=== PATIENT | female | born 1990 | race Caucasian/White ===

== ENCOUNTER 2018-08-31 08:00 | Outpatient (CLI) | payer MEDICAID, OTHER ==
[2018-09-01 08:57] LABS: HEPATITIS C ANTIBODY NON-REACTIVE (NON-REACTIVE)
[2018-09-01 13:17] LABS: HIV AG/AB 4TH GEN NON-REACTIVE (NON-REACTIVE)
[2018-09-02 08:46] LABS: HSV 1 IGG TYPE SPECIFIC AB <0.90 index; HSV 2 IGG TYPE SPECIFIC AB 8.35 index
== END 2018-08-31 23:59 | disposition home or self-care (01) ==
LOC: LAB.N 08:00
PROVIDERS: ATTEND Nurse Practitioner Obstetrics & Gynecology
DX: Z11.3 Encounter for screening for infections with a predominantly sexual mode of transmission (principal)
CPT/HCPCS: 36415; 81599; 86592; 86695; 86696; 86803; 87389

== ENCOUNTER 2018-08-31 08:00 | Outpatient (CLI) | payer MEDICAID, OTHER ==
[2018-08-31 14:46] LABS: BILIRUBIN,URINE NEGATIVE (NEGATIVE); GLUCOSE, URINE (UA) NEGATIVE (NEGATIVE); KETONES,URINE (UA) NEGATIVE (NEGATIVE); LEUKOCYTE ESTERASE, URINE NEGATIVE (NEGATIVE); NITRITE,URINE NEGATIVE (NEGATIVE); OCCULT BLOOD,URINE NEGATIVE (NEGATIVE); PROTEIN,URINE 30 mg/dL (NEGATIVE); UROBILINOGEN,URINE 0.2 (NORMAL) E.U./dL (NORMAL)
[2018-08-31 14:48] LABS: CLARITY,URINE CLEAR (CLEAR)
[2018-08-31 15:26] LABS: BACTERIA,URINE None Seen /HPF (None Seen); RBC,URINE None Seen /HPF (0-5); SQUAMOUS EPITHELIAL CELL,UR MOD Squamous (<= Few)
[2018-08-31 15:27] LABS: MUCUS,URINE Moderate Strands
[2018-08-31 22:06] LABS: CANDIDA GROUP DNA POSITIVE (NEGATIVE); CANDIDA KRUSEI DNA NEGATIVE (NEGATIVE); TRICHOMONAS VAGINALIS DNA NEGATIVE (NEGATIVE)
== END 2018-08-31 23:59 | disposition home or self-care (01) ==
LOC: LAB.R 08:00
PROVIDERS: ATTEND Nurse Practitioner Obstetrics & Gynecology
DX: R10.32 Left lower quadrant pain (principal)
CPT/HCPCS: 81001; 81003; 87086; 87661; 87801

== ENCOUNTER 2019-12-01 16:28 | Outpatient (CLI) | payer OTHER ==
[2019-12-02 09:06] LABS: HIV AG/AB 4TH GEN NON-REACTIVE (NON-REACTIVE)
[2019-12-02 12:21] LABS: HEPATITIS C ANTIBODY NON-REACTIVE (NON-REACTIVE)
[2019-12-06 08:41] LABS: HSV 1 IGG TYPE SPECIFIC AB <0.90 index
== END 2019-12-01 23:59 | disposition home or self-care (01) ==
LOC: LAB.WCP 16:28
PROVIDERS: ATTEND Nurse Practitioner Obstetrics & Gynecology
DX: N64.52 Nipple discharge (principal); Z11.3 Encounter for screening for infections with a predominantly sexual mode of transmission
CPT/HCPCS: 36415; 81599; 84146; 86592; 86695; 86696; 86803; 87389

== ENCOUNTER 2019-12-08 07:00 | Outpatient (CLI) | payer OTHER | END 2019-12-08 23:59 | disposition home or self-care (01) | LOC: LAB.R 07:00 | PROVIDERS: ATTEND Nurse Practitioner Obstetrics & Gynecology | DX: Z11.3 Encounter for screening for infections with a predominantly sexual mode of transmission (principal) | CPT/HCPCS: 81599; 87491; 87591 ==

== ENCOUNTER 2019-12-15 08:00 | Outpatient (CLI) | payer OTHER | END 2019-12-15 23:59 | disposition home or self-care (01) | LOC: LAB.WCP 08:00 | PROVIDERS: ATTEND Nurse Practitioner Obstetrics & Gynecology | DX: Z32.01 Encounter for pregnancy test, result positive (principal) | CPT/HCPCS: 36415; 84702 ==

== ENCOUNTER 2019-12-18 14:35 | Outpatient (CLI) | payer OTHER | END 2019-12-18 23:59 | disposition home or self-care (01) | LOC: LAB.WCP 14:35 | PROVIDERS: ATTEND Nurse Practitioner Obstetrics & Gynecology | DX: Z32.01 Encounter for pregnancy test, result positive (principal) | CPT/HCPCS: 36415; 84702 ==

== ENCOUNTER 2019-12-21 08:39 | Outpatient (CLI) | payer OTHER ==
--- NOTE | 2019-12-21 14:23 | Ultrasound Report ---
PROCEDURE: OB First Trimester INDICATIONS: POSITIVE TEST OUTSIDE/PRIOR DATING DATA: Last menstrual period (LMP): 11/14/2019. LMP-based estimated date of delivery (JERRY): 08/20/2020. First dating scan (date and location): 12/21/2019. Estimated date of delivery (JERRY) from first dating scan: Not applicable. TECHNIQUE: Real-time scanning was performed of the fetus and maternal pelvic organs, with image documentation. COMPARISON: None during this FINDINGS: The uterus is anteverted, anteflexed, and contains a fundal intrauterine gestational sac with a mean sac diameter of 8.9 mm. This corresponds to a 5 week 5 day +/- 12 day gestation. Endovaginal imaging demonstrates that a yolk sac is present. A pole is not detected. Measurement variability in dating: +/- 4 weeks by LMP, +/- 7 days by mean sac diameter (use before 6 weeks gestation if crown-rump length not able to be measured), +/- 5 days by crown-rump length (6-12 weeks gestation). The cervix is closed. There is no subchorionic hemorrhage. There is a tiny subserosal uterine fibroi d off the left posterior fundus. The myometrium is otherwise normal. Ovaries are normal in size. Ther e is a corpus luteum in the right ovary measuring about 1.8 cm. Trace amount of simple fluid is prese nt in the cul-de-sac. Limited images through the kidneys demonstrate no hydronephrosis. IMPRESSION: 1. There is an intrauterine gestational sac containing a yolk sac without appear pole. This is likely due to an early and follow-up ultrasound in 2 weeks to confirm viability is recommended. 2. Closed cervix and no subchorionic hemorrhage. 3. Right ovarian corpus luteum. Reviewed by: Citlali Hutchison MD on 12/21/2019 1:21 PM [facility] Approved by: Citlali Hutchison MD on 12/21/2019 1:21 PM [facility] Station ID: [id number]
== END 2019-12-21 08:40 | disposition home or self-care (01) ==
LOC: DI 08:39
PROVIDERS: ATTEND Nurse Practitioner Obstetrics & Gynecology
DX: O34.81 Maternal care for other abnormalities of pelvic organs, first trimester (principal); N83.11 Corpus luteum cyst of right ovary; O92.79 Other disorders of lactation; O99.89 Other specified diseases and conditions complicating pregnancy, childbirth and the puerperium; N63.14 Unspecified lump in the right breast, lower inner quadrant; Z3A.01 Less than 8 weeks gestation of pregnancy
CPT/HCPCS: 76642; 76801; 76817

== ENCOUNTER 2019-12-21 09:23 | Outpatient (CLI) | payer OTHER ==
--- NOTE | 2019-12-22 12:03 | Ultrasound Report ---
LIMITED ULTRASOUND OF LEFT BREAST: 12/21/2019 CLINICAL: Nipple discharge, left breast, not bloody. No prior exams were available for comparison. Real-time ultrasound of the left breast retroareolar was performed on the area of interest. No discrete cystic or solid mass lesion identified in the retroareolar region. IMPRESSION: NEGATIVE There is no sonographic evidence of malignancy. There is no abnormality seen in the left breast to correspond with the discharge from the nipple in t he sub-areolar depth, however, clinical followup is recommended. This exam was interpreted at Station ID: [id number]. Electronically Signed By: Thompson Castaneda M.D. ddp/:12/21/2019 14:54:10 Ultrasound BI-RADS: 1 Negative BI-RADS CATEGORY: (1) - 1 Unspecified - other recall n/a LATERALITY: (B)
--- NOTE | 2019-12-22 12:03 | Ultrasound Report ---
LIMITED ULTRASOUND OF RIGHT BREAST AND AXILLA: 12/21/2019 CLINICAL: Palpable right breast lump. No prior exams were available for comparison. Color flow and real-time ultrasound of the right breast 3 o'clock, and axilla regions were performed on the areas of interest. There is a 2.2 cm x 1.9 cm x 0.9 cm oval mass with a circumscribed margin in the right breast at 3 o' clock middle depth. This oval mass is hypoechoic with a well-defined boundary. This correlates as p alpated. Color flow imaging demonstrates that there is vascularity present. IMPRESSION: PROBABLY BENIGN The 2.2 cm x 1.9 cm x 0.9 cm oval mass in the right breast likely represents a fibroadenoma and is pr obably benign. A follow-up ultrasound in 3 months is recommended given patient's reported history of change on exam and current . A follow-up ultrasound in 3 months is recommended. This exam was interpreted at Station ID: [id number]. Electronically Signed By: Thompson Castaneda M.D. ddmerlyn/:12/21/2019 14:57:11 Ultrasound BI-RADS: 3 Probably benign BI-RADS CATEGORY: (3) - 3 Ultrasound [id number] 3 month follow-up LATERALITY: (B)
== END 2019-12-21 09:24 | disposition home or self-care (01) ==
LOC: DI 09:23
PROVIDERS: ATTEND Nurse Practitioner Obstetrics & Gynecology
DX: N63.14 Unspecified lump in the right breast, lower inner quadrant (principal); N64.52 Nipple discharge
CPT/HCPCS: 76642

== ENCOUNTER 2020-01-25 12:18 | Outpatient (CLI) | payer OTHER ==
--- NOTE | 2020-01-25 14:48 | Ultrasound Report ---
PROCEDURE: OB First Trimester INDICATIONS: POSITIVE TEST OUTSIDE/PRIOR DATING DATA: Last menstrual period (LMP): 11/14/2019. LMP-based estimated date of delivery (JERRY): 08/20/2020. Estimated date of delivery (JERRY) from first dating scan: 08/16/2020. TECHNIQUE: Real-time scanning was performed of the fetus and maternal pelvic organs, with image documentation. COMPARISON: 12/21/2019 FINDINGS: Embryo: Single living intrauterine gestation with an estimated gestational age of approximately 10 w eeks and 2 days (based off clinical dating). Estimated sonographic gestational age based off crown-ru mp length of 3.9 cm is approximately 10 weeks and 6 days. heart rate is measured at 150 bpm. No perigestational hemorrhage. Measurement variability in dating: +/- 4 weeks by LMP, +/- 7 days by mean sac diameter (use before 6 weeks gestation if crown-rump length not able to be measured), +/- 5 days by crown-rump length (6-12 weeks gestation). Maternal organs: There is a right corpus luteal cyst. Stable posterior uterine fibroid.. Limited alfredo ges through the kidneys demonstrate no hydronephrosis. IMPRESSION: 1. Single living intrauterine gestation with an estimated sonographic gestational age of approximatel y 10 weeks and 6 days versus approximately 10 weeks and 2 days based off clinical dating. Measurement s are concordant. 2. Recommend routine follow-up second trimester anatomic screening survey. 3. Stable posterior uterine fibroid. Reviewed by: Tim Suazo MD on 01/25/2020 2:46 PM PDT Approved by: Tim Suazo MD on 01/25/2020 2:46 PM PDT Station ID: [id number]
== END 2020-01-25 12:19 | disposition home or self-care (01) ==
LOC: DI 12:18
PROVIDERS: ATTEND Nurse Practitioner Obstetrics & Gynecology
DX: Z34.91 Encounter for supervision of normal pregnancy, unspecified, first trimester (principal)
CPT/HCPCS: 76801

== ENCOUNTER 2020-02-02 13:13 | Outpatient (CLI) | payer OTHER ==
[2020-02-02 18:39] LABS: BASOPHILS # (AUTO) 0.1 10^3/uL (0.0-0.1); BASOPHILS % (AUTO) 0.7 %; EOSINOPHILS # (AUTO) 0.4 10^3/uL (0.0-0.7); EOSINOPHILS % (AUTO) 3.6 %; HGB - HEMOGLOBIN 11.3 g/dL (12.0-16.0); LYMPHOCYTES # (AUTO) 2.8 10^3/uL (1.5-3.5); LYMPHOCYTES % (AUTO) 28.6 %; MEAN CORPUSCULAR HEMOGLOBIN 30.4 pg (27.0-31.0); MEAN CORPUSCULAR HGB CONC 33.6 g/dL (32.0-36.0); MEAN CORPUSCULAR VOLUME 90.3 fL (81.0-99.0); MEAN PLATELET VOLUME 10.6 fL (7.9-10.8); MONOCYTES # (AUTO) 0.7 10^3/uL (0.0-1.0); MONOCYTES % (AUTO) 7.4 %; NEUTROPHILS # (AUTO) 5.9 10^3/uL (1.5-6.6); NEUTROPHILS % (AUTO) 59.3 %; PLT - PLATELET COUNT 253 10^3/uL (130-450); RED BLOOD COUNT 3.72 10^6/uL (4.20-5.40); RED CELL DISTRIBUTION WIDTH 13.8 % (12.0-15.0); WHITE BLOOD COUNT 9.9 x10^3/uL (4.8-10.8)
[2020-02-03 08:46] LABS: HIV AG/AB 4TH GEN NON-REACTIVE (NON-REACTIVE)
[2020-02-03 12:38] LABS: HEPATITIS B SURFACE ANTIGEN NON-REACTIVE (NON-REACTIVE)
== END 2020-02-02 23:59 | disposition home or self-care (01) ==
LOC: LAB.WCP 13:13
PROVIDERS: ATTEND Advanced Practice Midwife
DX: Z36.89 Encounter for other specified antenatal screening (principal)
CPT/HCPCS: 36415; 81001; 81003; 81599; 85025; 86592; 86762; 86787; 86850; 86900; 86901; 87086; 87340; 87389

== ENCOUNTER 2020-02-15 08:00 | Outpatient (CLI) | payer OTHER ==
[2020-02-15 19:28] LABS: BILIRUBIN,URINE NEGATIVE (NEGATIVE); GLUCOSE, URINE (UA) NEGATIVE (NEGATIVE); KETONES,URINE (UA) NEGATIVE (NEGATIVE); LEUKOCYTE ESTERASE, URINE NEGATIVE (NEGATIVE); NITRITE,URINE NEGATIVE (NEGATIVE); OCCULT BLOOD,URINE NEGATIVE (NEGATIVE); PROTEIN,URINE NEGATIVE (NEGATIVE); UROBILINOGEN,URINE 0.2 (NORMAL) E.U./dL (NORMAL)
[2020-02-15 19:31] LABS: CLARITY,URINE CLEAR (CLEAR)
[2020-02-15 19:36] LABS: BACTERIA,URINE Rare /HPF (None Seen); RBC,URINE None Seen /HPF (0-5); SQUAMOUS EPITHELIAL CELL,UR MOD Squamous (<= Few)
== END 2020-02-15 23:59 | disposition home or self-care (01) ==
LOC: LAB.R 08:00
PROVIDERS: ATTEND Advanced Practice Midwife
DX: Z36.89 Encounter for other specified antenatal screening (principal)
CPT/HCPCS: 81001; 87086

== ENCOUNTER 2020-04-08 15:11 | Outpatient (CLI) | payer OTHER ==
--- NOTE | 2020-04-09 13:19 | Ultrasound Report ---
LIMITED ULTRASOUND OF RIGHT BREAST: 04/08/2020 CLINICAL: Palpable right breast lump. Comparison is made to exam dated: 12/21/2019 ultrasound - [facility]. Ultrasound of the right breast 3 o'clock region was performed. There is a 2.2 cm x 1.9 cm x 0.9 cm oval mass with a circumscribed margin in the right breast at 3 o' clock middle depth 3 cm from the nipple. This oval mass is hypoechoic with a well-defined boundary. This abnormality is not significantly changed. IMPRESSION: PROBABLY BENIGN The 2.2 cm x 1.9 cm x 0.9 cm oval mass in the right breast likely represents a fibroadenoma and is pr obably benign. A follow-up right ultrasound in 6 months is recommended to demonstrate stability. This exam was interpreted at Station ID: [id number]. Electronically Signed By: Eber damon/celestine:04/08/2020 16:45:29 Ultrasound BI-RADS: 3 Probably benign BI-RADS CATEGORY: (3) - 3 Ultrasound [id number] 6 month follow-up LATERALITY: (R)
== END 2020-04-08 15:12 | disposition home or self-care (01) ==
LOC: DI 15:11
PROVIDERS: ATTEND Nurse Practitioner Obstetrics & Gynecology
DX: D24.1 Benign neoplasm of right breast (principal)

== ENCOUNTER 2020-04-08 15:12 | Outpatient (CLI) | payer OTHER ==
--- NOTE | 2020-04-09 18:36 | Ultrasound Report ---
PROCEDURE: OB Detailed Eval INDICATIONS: SCREENING OUTSIDE/PRIOR DATING DATA: Last menstrual period (LMP): 11/14/2019. LMP-based estimated date of delivery (JERRY): 08/20/2020. Estimated date of delivery (JERRY) from first dating scan: 08/16/2020. TECHNIQUE: Real-time scanning was performed of the fetus, with image documentation and biometric measurements. Endovaginal scanning: Not performed COMPARISON: 01/25/2020 FINDINGS: General: A single living intrauterine gestation is present. Presentation: Variable Placenta: Placental position is anterior, without previa. Amniotic fluid index: 16.6 cm cm, 70th percentile for gestational age. heart rate: 150 beats per minute. Maternal cervical canal: 4.95 cm long; normal length is 2.5 cm or more. Previously visualized poste rior uterine fibroid was not imaged on today's exam. biometrics: Biparietal diameter: 4.86 cm, correlating with 20 weeks and 5 days Head circumference: 18.86 cm, correlating with 21 weeks and 1 day Abdominal circumference: 16.96 cm, correlating with 22 weeks and 0 days Femur length: 3.67 cm, correlating with 21 weeks and 5 days Estimated gestational age from initial scan: not applicable. Composite gestational age from present scan: 21 weeks and 2 days Estimated weight and percentile: 445 [address] the fetus within the 60th percentile Measurement variability in biometric dating: +/- 10 days from 12-20 weeks gestation, +/- 2 weeks from 20-30 weeks gestation, +/- 3 weeks at 30 weeks gestation or later. Anatomic survey: Neuro: Ventricles are normal at less than 10 mm. Cisterna magna is normal at 3-11 mm. Cerebellum i s normal in size and morphology. Nuchal skin fold: Normal at less than 6 mm between 14 and 20 weeks gestational age. Face: Nose and lips, facial profile are normal. Spine: No evidence for spina bifida. Heart: 4-chambered heart is present, with normal ventricular outflow tracts. Diaphragm: Diaphragm is intact. Stomach: Left-sided stomach is present. Kidneys: No hydronephrosis. Normal is less than 5 mm in 2nd trimester, less than 7 mm in 3rd trimester. Cord: 3 vessel cord has orthotopic insertion. Bladder: Normal in size. Extremities: All 4 extremities are visualized. IMPRESSION: 1. Single living intrauterine gestation with an estimated sonographic gestational age of approximatel y 21 weeks and 2 days with estimated date of delivery of 08/17/2020. Expected interval growth has occu rred. Estimated weight of 445 g correlating with the 60th percentile based off gestational age. 2. Unremarkable anatomic screening survey. Reviewed by: Tim Suazo MD on 04/09/2020 5:34 PM [facility] Approved by: Tim Suazo MD on 04/09/2020 5:34 PM [facility] Station ID: [id number]
== END 2020-04-08 15:13 | disposition home or self-care (01) ==
LOC: DI 15:12
PROVIDERS: ATTEND Nurse Practitioner Obstetrics & Gynecology
DX: Z36.89 Encounter for other specified antenatal screening (principal); D24.1 Benign neoplasm of right breast

== ENCOUNTER 2020-05-17 15:20 | Outpatient (CLI) | payer OTHER ==
[2020-05-17 18:07] LABS: HGB - HEMOGLOBIN 10.4 g/dL (12.0-16.0); MEAN CORPUSCULAR HEMOGLOBIN 30.6 pg (27.0-31.0); MEAN CORPUSCULAR HGB CONC 32.9 g/dL (32.0-36.0); MEAN CORPUSCULAR VOLUME 92.9 fL (81.0-99.0); MEAN PLATELET VOLUME 10.9 fL (7.9-10.8); RED BLOOD COUNT 3.4 10^6/uL (4.20-5.40); WHITE BLOOD COUNT 13.7 x10^3/uL (4.8-10.8)
== END 2020-05-17 23:59 | disposition home or self-care (01) ==
LOC: LAB.WCP 15:20
PROVIDERS: ATTEND Nurse Practitioner Obstetrics & Gynecology
DX: Z36.89 Encounter for other specified antenatal screening (principal)
CPT/HCPCS: 36415; 82950; 85027

== ENCOUNTER 2020-05-29 12:28 | Outpatient (CLI) | payer OTHER ==
[2020-05-29 12:38] VITALS: BP 100/60
--- NOTE | 2020-05-29 14:12 | PREOP HISTORY & PHYSICAL ---
DATE OF SERVICE: 05/29/2020 Physician: Mj Guillory MD IDENTIFICATION: The patient is a 29-year-old G1, P0 female. Her EDC is 08/20/2020. This makes her 28 weeks and 1 day. HISTORY OF PRESENT ILLNESS: The patient started her OB care at 9 weeks EGA. Her course has been unremarkable with the exception that today while in the office, she was noted to have audible bradycardia, which had dropped from 135 down into the 70s and 90s. This lasted for roughly 30 seconds responded spontaneously. She was sent over to labor and delivery, at which time, a monitor strip was placed with heart rate baseline running in the 130s-140s, but once again having episodes of bradycardia, which were abrupt in onset. These seemed very compatible with a heart block. Upon questioning the patient, she states that she periodically will have episodes of what appeared to be heart block, as well as a father with the same history. She denies any history of any autoimmune disease. Of note is the fact she smokes cigarettes. The patient's blood type is noted to be A+. Her STI checks have been negative. It was discussed with Dr. Hunt, maternal medicine at the [facility] office and she was recommended to go to [facility]. 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 Rubella titer positive PAST MEDICAL HISTORY: The patient denies any diabetic, cardiac or pulmonary disease. She does have some anxiety disorders. PAST SURGICAL HISTORY: Positive for an appendicitis. ALLERGIES: SHELLFISH. CURRENT MEDICATIONS: vitamins. HABITS: The patient smokes. At this time, she has been counseled that she should cease this. SOCIAL HISTORY: The patient is in a safe, stable environment at this time. The father of the baby is involved in the . He is active duty [employer]. FAMILY HISTORY: Contributory in that her father had a history of heart block. Alcoholism, hypertension, melanoma, PTSD, arthritis. PHYSICAL EXAM GENERAL: The patient is a well-developed, well-nourished female. She is in no acute distress at this time. She is mildly anxious about the concerns about the condition of the baby. HEENT: Pupils equal, round. Extraocular muscles are intact. Thyroid is not palpably enlarged. HEART: Regular rate and rhythm without murmurs. LUNGS: Lung powell are clear without rales or wheezes. ABDOMEN: Gravid, soft, nontender at this time. Currently, the fundal height is 28 cm. IMPRESSION 1. A 29-year-old primigravida. 2. Episodes of bradycardia, heart block. 3. Anxiety. PLAN: Following discussion with [place] at [facility], as well as the charge nurse, Nalini at [facility], it was decided to transfer her via ambulance. Dr. Candy Gray is the physician on-call. TD: 05/29/2020 13:54 [place]
== END 2020-05-29 15:07 | disposition short-term general hospital (02) ==
LOC: WFO 12:28 → FBP 12:31 → WFO 15:07
PROVIDERS: ATTEND Advanced Practice Midwife
DX: O36.8330 Maternal care for abnormalities of the fetal heart rate or rhythm, third trimester, not applicable or unspecified (principal); O99.333 Smoking (tobacco) complicating pregnancy, third trimester; F17.210 Nicotine dependence, cigarettes, uncomplicated; O99.343 Other mental disorders complicating pregnancy, third trimester; F41.9 Anxiety disorder, unspecified; Z3A.38 38 weeks gestation of pregnancy
CPT/HCPCS: 59025; 99214

== ENCOUNTER 2020-06-14 09:51 | Outpatient (CLI) | payer OTHER ==
[2020-06-14 10:01] VITALS: BP 105/62
--- NOTE | 2020-06-14 17:48 | PROCEDURE REPORT ---
- HPI Diagnosis/Indication for NST: Other ( arrythmia) Current EDU 08/20/20 Gestation 30 Weeks and 3 Days 1 Para 0 Vital Signs Temperature 36.9 C 06/14/20 09:58 Heart Rate 97 06/14/20 09:58 Respiratory Rate 18 06/14/20 09:58 Blood Pressure 105/62 06/14/20 09:58 O2 Saturation 100 06/14/20 09:58 Temperature 36.9 C 06/14/20 09:58 Heart Rate 97 06/14/20 09:58 Respiratory Rate 18 06/14/20 09:58 Blood Pressure 105/62 06/14/20 09:58 O2 Saturation 100 06/14/20 09:58 - NST Procedure NST Procedure Start Date 06/14/20 Start Time 09:53 Stop Time 10:30 Vibroacoustic Stimulation Used No Patient States Movement Yes - Results and Plan Plan: Diagnosis: Arrythmia NST perform date: 06/14/2020 NST read date: 06/14/2020 Baseline 120, moderate variability, 10x10 accels, NO DECELS Interpretation: Reactive Zaina is a 29yo at 30.3wks PROBLEMS: 05/29/2020 arrythmia noted and pt transferred to [facility] - arrythmia resolved (likely PACs which are typically benign and often resolved as gestational age increases). echo WNL. S/p BMZ course 05/29-05/30. Recomendation NST x once. Resume routine care. This NST is normal and therefore her surveillance is complete. Plan: Continue with routine care
--- OUTSIDE RECORDS SUMMARY | 2020-07-02 13:30 | EXTERNAL MEDICAL SUMMARY RPT | Continuity of Care Document ---
:1990 Demographics Phone Unavailable Preferred Language Unknown Marital Status Unknown Scientologist Affiliation Unknown Race Unknown Ethnic Group Unknown Author Organization [place] Address [address] [place] [address] Phone Problems date description facility [id number] Other [employer] [facility] Social History date description facility [id number]
== END 2020-06-14 10:30 | disposition home or self-care (01) ==
LOC: WFO 09:51 → FBP 09:52 → WFO 10:30
PROVIDERS: ATTEND Advanced Practice Midwife
DX: O36.8330 Maternal care for abnormalities of the fetal heart rate or rhythm, third trimester, not applicable or unspecified (principal); Z3A.30 30 weeks gestation of pregnancy
CPT/HCPCS: 59025

== ENCOUNTER 2020-07-26 08:00 | Outpatient (CLI) | payer OTHER ==
[2020-07-26 19:05] LABS: BACTERIAL VAGINOSIS DNA NEGATIVE (NEGATIVE); CANDIDA GLABRATA DNA NEGATIVE (NEGATIVE); CANDIDA GROUP DNA POSITIVE (NEGATIVE); CANDIDA KRUSEI DNA NEGATIVE (NEGATIVE); TRICHOMONAS VAGINALIS DNA NEGATIVE (NEGATIVE)
== END 2020-07-26 23:59 | disposition home or self-care (01) ==
LOC: LAB.WC 08:00
PROVIDERS: ATTEND Nurse Practitioner Obstetrics & Gynecology
DX: Z36.85 Encounter for antenatal screening for Streptococcus B (principal); N89.8 Other specified noninflammatory disorders of vagina
CPT/HCPCS: 87661; 87797; 87801

== ENCOUNTER 2020-08-05 12:11 | Inpatient (IN) | payer OTHER ==
[2020-08-05] MEDS ORDERED: ONDANSETRON 4 MG/2 ML VIAL IVP PRN (12:38)
[2020-08-05] MEDS ORDERED: miSOPROStoL 200 MCG TABLET BC PRN (12:38)
[2020-08-05] MEDS ORDERED: SODIUM CHLORIDE FLUSH 0.9% 10 ML SYRINGE IVP PRN (12:38)
[2020-08-05] MEDS ORDERED: OXYTOCIN/SODIUM CHLORIDE 500 ML IV PRN (12:38)
[2020-08-05] MEDS ORDERED: METHYLERGONOVINE 0.2 MG/ML VIAL IM PRN (12:38)
[2020-08-05] MEDS ORDERED: METOCLOPRAMIDE 10 MG/2 ML VIAL IVP PRN (12:38)
[2020-08-05] MEDS ORDERED: CARBOPROST TROMETHAMINE 250 MCG/ML AMP IM PRN (12:38)
[2020-08-05] MEDS ORDERED: TRANEXAMIC ACID IN NACL 1,000 MG/100 ML BAG IV PRN (12:38)
[2020-08-05] MEDS ORDERED: fentaNYL 100 MCG/2 ML VIAL IVP PRN (12:38)
[2020-08-05] MEDS ORDERED: OXYTOCIN 10 UNIT/ML VIAL IM PRN (12:38)
[2020-08-05] MEDS ORDERED: LIDOCAINE-MPF 1% 30 ML VIAL ID PRN (12:38)
[2020-08-05 12:53] LABS: RUPTURE OF MEMBRANES PLUS POSITIVE (NEGATIVE)
--- NOTE | 2020-08-05 12:54 | HISTORY & PHYSICAL EXAMINATION ---
Admit History - Visit Reason Visit Reason: Contractions, Membranes rupture - : 1 Parity: 0 Premature: 0 Ectopic: 0 : 0 Care: positive: Other ([facility]) Risk/History: positive: None Complications This : positive: None Smoking Status: Current every day smoker - Mother's Labs Mother's Blood Type: positive: A Mother's RH: positive: Positive GBS: positive: Group B Step Negative Rubella Status: positive: Immune - Other Maternal History Other Maternal History: 2yo at 37.6 wks gestation who presents to labor and delivery with complaints of contractions that started around 0630 and became more frequent and intense throughout the day. She felt a large gush of fluid around noon, and presented to labor and delivery Reports movement Denies Ctx/VB Care- with [facility] which has been adequate complications PROBLEMS: arrythmia noted and pt transferred to [facility] - arrythmia resolved (likely PACs which are typically benign and often resolved as gestational age increases). echo WNL. S/p BMZ course 05/29-05/30. Recomendation NST x once (completed, wnl). Resume routine care. Dating Criteria *Initial U/S: at 5.5wks, c/w reported conception date for JERRY 08/20/2020 OB Hx *G1: current Medications * PNV *Valacyclovir 500mg BID since 36wks *Ferrous sulfate- 325mg daily Allergies * Shellfish(mild) *Dust mites (mild) *Viviane Hsieh (severe) Medical History * Anxiety *HSV II Surgical History * Appendectomy Family History * Father- alcoholism *Mother- weight disorder, HTN *Aunt- Endometriosis *Otherwise non-contributory Social History * Non contributory Labs and Findings Initial U/S: at 5.5wks, c/w reported conception date for JERRY 08/20/2020 f/u US at 10.6 wks consistent with first US A pos/Rubella immune VZV- immune Fibroadenoma in breast- f/u US wnl, f/u US next in early September Gentic testing: declines FAS: Ant placenta. ERNESTINE 70%. 3VC, EFW 60% Glucola 118 Flu: declines TDAP 05/29/2020 GBS at 36.3 weeks. 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 Rx sent. Breast pump Rx provided MOD: . Partner: Rudolph (paternity test at 11 weeks confirmed). Moving in with her parents. Hoping to have Rudolph as her support person at the and if not then she plans to have her dad there; baby GIRL-Hetal Triana; desires umedicated delivery; pp contraception: IUD PAP: 08/30/2018-wnl SVE - deferred due to SROM Assessment * 29yo at 37.6wks gestation presents in active labor *FHT Cat I *Uterine activity- every 3-5 minutes Plan * Admit to L&D * Monitoring- Continuous * Comfort measures available- whirlpool tub, fentanyl, epidural * Diet/Activity- per pt preference * Anticipate Meds/Allgy - Home Medications Home Medications: Ambulatory Orders Medication Instructions Recorded Confirmed Penicillin Vk 500 mg PO TID 10 Days tablet 02/02/13 - Allergies Allergies/Adverse Reactions: Allergies Allergy/AdvReac Type Severity Reaction Status Date / Time No Known Drug Allergies Allergy Verified 02/02/13 11:59 Review of Systems - All Other Systems All Other Systems: reports: Reviewed and negative Physical - Abdominal Exam Contraction Frequency (min/apart): 3-5 Contraction Intensity: positive: Moderate Uterine Resting Tone: positive: Soft - Monitoring Strip Review: positive: Category I - Vaginal Exam Membranes: positive: Membranes ruptured Plan for Labor - Plan For Labor I expect patient to be DC'd or transferred within 96 hours.: Yes
--- OUTSIDE RECORDS SUMMARY | 2020-08-05 12:59 | EXTERNAL MEDICAL SUMMARY RPT | Continuity of Care Document ---
:1990 Demographics Phone Unavailable Preferred Language Unknown Marital Status Unknown Yazidi Affiliation Unknown Race Unknown Ethnic Group Unknown Author Organization [place] Address [address] [place] [address] Phone Problems date description facility [id number] Other [facility]
[2020-08-05] MEDS ORDERED: LACTATED RINGERS 1,000 ML IV SCH (13:00)
[2020-08-05 13:09] LABS: BASOPHILS # (AUTO) 0.1 10^3/uL (0.0-0.1); BASOPHILS % (AUTO) 0.5 %; EOSINOPHILS % (AUTO) 0.2 %; HCT - HEMATOCRIT 36.2 % (37.0-47.0); HGB - HEMOGLOBIN 12.5 g/dL (12.0-16.0); LYMPHOCYTES % (AUTO) 12.7 %; MEAN CORPUSCULAR HEMOGLOBIN 31.1 pg (27.0-31.0); MEAN CORPUSCULAR HGB CONC 34.5 g/dL (32.0-36.0); MONOCYTES # (AUTO) 0.8 10^3/uL (0.0-1.0); MONOCYTES % (AUTO) 4.8 %; NEUTROPHILS # (AUTO) 12.6 10^3/uL (1.5-6.6); NEUTROPHILS % (AUTO) 81.5 %; PLT - PLATELET COUNT 230 10^3/uL (130-450); RED BLOOD COUNT 4.02 10^6/uL (4.20-5.40); RED CELL DISTRIBUTION WIDTH 13.7 % (12.0-15.0); WHITE BLOOD COUNT 15.5 x10^3/uL (4.8-10.8)
[2020-08-05] MEDS ORDERED: MAGNESIUM HYDROXIDE 2,400 MG/30 ML UDC PO PRN (15:39)
--- NOTE | 2020-08-05 15:41 | DELIVERY NOTE ---
Delivery Note - Labor Labor: positive: Spontaneous - Delivery Method Delivery Method: positive: Spontaneous vaginal delivery - Presentation Presentation: positive: Vertex, PIYUSH - left occiput anterior - Nuchal Cord Nuchal Cord: positive: None - Amniotic Fluid Description Amniotic Fluid Description: positive: Clear - Laceration Laceration: positive: 1st degree, Labial, Uterine - Suture Suture Type: positive: Vicryl Suture Size: positive: 3-0 - Delivery Outcome Delivery Outcome: positive: Livebirth - [place]: positive: Placed in direct skin contact with mother, Stimulated, Peyton used [place] sex: positive: Female : 8 : 9 - Cord Cord: positive: 3 vessels - Placenta Placenta: positive: Intact, Spontaneous - Estimated Blood Loss Estimated Blood Loss (in cc): 300 - Post Delivery Events Post Delivery Events: positive: No post delivery events - Delivery Comments (Free Text/Narrative) Delivery Comments (Free Text/Narrative): Note: Labor: This 29 year old, , @37.6wks gestation by 5.5week Ultrasound, confirmed by LMP, presented @ noon in active labor with report of rupture of membranes at home, with moderate amount of clear fluid noted and positive nitrazine test. FHR pattern demonstrated 120 baseline in a Category I pattern. Normal labor course. She quickly proceeded to c/c+2 at 1420 and began pushing with coaching as strip was Cat II at that time. : Normal of a 2730gm female infant, named Hetal, on 08/05/2020 @ 1437. Nuchal not present. The was placed on maternal abdomen, stimulated, dried and placed skin to skin. Apgars 8 at one minute and 9 at five minutes. The umbilical cord was allowed to stop pulsating at which time it was doubly clamped by CNM and cut by FOB. Pitocin administered via IV for hemostasis. Fundal massage and gentle cord traction applied for active third stage management. Cord blood was obtained. Placenta delivered spontaneously and intact at 1442. Three vessel cord. EBL 300 mL. Fourth Stage: Uterine fundus firm and without excessive bleeding. The perineum, vagina, and cervix were inspected and found to have sustained a first degree left vaginal laceration and bilateral labial lacerations. All lacerations were repaired with lidocaine anesthesia, with a 3-0 vicryl in standard fashion, under sterile conditions. Vaginal examination following repair was done. Tissues well approximated. initiated. Family bonding well. Both mother and baby are in stable condition.
[2020-08-05] MEDS: ACETAMINOPHEN 325 MG TABLET PO SCH ×2 (16:12→19:23)
[2020-08-05] MEDS: IBUPROFEN 600 MG TABLET PO SCH ×2 (16:13→22:11)
[2020-08-05] MEDS ORDERED: SODIUM CHLORIDE FLUSH 0.9% 10 ML SYRINGE IVP SCH (17:00)
[2020-08-05] MEDS: DOCUSATE SODIUM 100 MG CAPSULE PO SCH (21:03)
[2020-08-05] MEDS: WITCH HAZEL/GLYCERIN 1 PAD TOP PRN (22:13)
[2020-08-05] MEDS: HYDROCORTISONE 1% CREAM 28 GM TUBE PR PRN (22:14)
[2020-08-06] MEDS: IBUPROFEN 600 MG TABLET PO SCH ×4 (04:00→23:48)
[2020-08-06] MEDS: DOCUSATE SODIUM 100 MG CAPSULE PO SCH ×2 (08:11→20:39)
[2020-08-06] MEDS ORDERED: NICOTINE 14 MG PATCH TOP SCH (09:00)
--- NOTE | 2020-08-06 21:51 | PROVIDER PROGRESS NOTE ---
Subjective - Prog Note Date Prog Note Date: 08/06/20 Prog Note Time: 13:30 - Subjective Pt reports feeling: Improved Subjective: S: Phoebe is resting in bed, working on getting baby to latch. She reports is going well. She acknowledges that baby is a little fussy today likely due to nicotine exposure, and states that she, herself, is doing fine without smoking at this time. 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 She reports her bleeding as spotting and that her perineum is healing well. Pain is well controlled with PO pain meds. O: fundus firm lochia rubra A: 29yo s/p pp day 1 Normal recovery P: Continue with routine care Evaluate for discharge home tomorrow Objective - Vital Signs/Intake & Output Vital Signs: Vital Signs x48h Temp Pulse Resp BP Pulse Ox 08/06/20 20:10 37.2 C 18 08/06/20 16:10 36.8 C 60 18 95/47 L 100 Intake & Output: Intake & Output 08/03/20 08/04/20 08/05/20 08/06/20 23:59 23:59 23:59 23:59 Intake Total 1208.333 300 Output Total 450 Balance 758.333 300 - Lab Results Fish Bones: 08/05/20 12:50
[2020-08-06] MEDS: ACETAMINOPHEN 325 MG TABLET PO SCH (23:34)
[2020-08-07] MEDS: IBUPROFEN 600 MG TABLET PO SCH (07:50)
[2020-08-07] MEDS: DOCUSATE SODIUM 100 MG CAPSULE PO SCH (07:50)
[2020-08-07 08:02] VITALS: BP 100/64
--- NOTE | 2020-08-07 09:27 | PROVIDER PROGRESS NOTE ---
Subjective - Prog Note Date Prog Note Date: 08/07/20 Prog Note Time: 08:30 - Subjective Pt reports feeling: Improved Subjective: S: Phoebe is resting in bed, eating breakfast. Baby is swaddled and peacefully sleeping in the bassinet. FOB is supportive at bedside. She reports is going well and they are awaiting labs for jaundice. Her pain is well controlled with oral meds and her bleeding is still spotting. O: Lochia rubra Fundus firm A: 29yo s/p on pp day 2 Normal recovery P: Continue routine care Evaluate for discharge to home or boarder status today, depending on baby's outcomes Objective - Vital Signs/Intake & Output Vital Signs: Vital Signs x48h Temp Pulse Pulse Resp BP Pulse Ox 08/07/20 07:50 36.8 C 71 18 100/64 100 08/07/20 04:00 37.2 C 72 18 116/66 98 Intake & Output: Intake & Output 08/04/20 08/05/20 08/06/20 08/07/20 23:59 23:59 23:59 23:59 Intake Total 1208.333 300 Output Total 450 Balance 758.333 300 - Lab Results Fish Bones: 08/05/20 12:50
--- NOTE | 2020-08-07 09:32 | DISCHARGE SUMMARY ---
Discharge Summary - HPI History of Present Illness: Admit Date 08/05/2020 Discharge Date 08/07/2020 Diagnosis on Admission: 1. A 29yo at 37.6 week intrauterine 2. Active Labor Diagnosis on Discharge 1. A 29yo s/p spontaneous vaginal delivery on 08/05/2020 2. Normal recovery Brief History: She is a patient at [facility] who presented on 08/05/2020 with complaints of contractions and a gush of fluid. The patient was found to contract every 1 to 5 minutes and her ROM+ was positive. She rapidly progressed to complete and spontaneously delivered a viable female named Hetal. Apgars were 8 and 9- and 1 and 5 minutes respectively. EBL 300mL. The patient has a 1st degree laceration that was repaired with 3-0 vicryl in usual fashion under sterile conditions. She has been doing well in her course. She is ambulating and tolerating a regular diet. She is urinating without difficulty and her lochia is normal. Her pain is well controlled with oral medications. She will be discharged to boarder status today on day #2 without need for prescriptions . She intends to follow up with Midwifery at [facility] in 1, and 6 weeks for routine visit. She has been given precautions to call if she has any worsening fevers, chills, abdominal pain, increased bleeding or foul smelling vaginal lochia. - ALLERGIES Allergies/Adverse Reactions: Allergies Allergy/AdvReac Type Severity Reaction Status Date / Time lucas Allergy Severe Unknown Verified 08/05/20 16:44 shellfish derived Allergy Mild Unknown Verified 08/05/20 16:44 - MEDICATIONS Home Medications: Ambulatory Orders Medication Instructions Recorded Confirmed Penicillin Vk 500 mg PO TID 10 Days tablet 02/02/13 - LABS Result Diagrams: 08/05/20 12:50
--- NOTE | 2020-08-07 09:33 | Discharge Plan ---
Discharge Plan Problem Reviewed?: Yes Disposition: Home, Self Care Condition: Good Diet: Regular Additional Instructions or Follow Up instructions: Follow up with midwifery at 1 and 6 weeks No Smoking: If you smoke, Please STOP! Call for help. Follow-up with: Keerthi Cottrell ARNP [Provider Admit Priv/Credential] -
[2020-08-07] MEDS: HYDROCORTISONE 1% CREAM 28 GM TUBE PR PRN (10:01)
[2020-08-07] MEDS: WITCH HAZEL/GLYCERIN 1 PAD TOP PRN (10:01)
--- NOTE | 2020-08-07 12:30 | Labor Flowsheet ---
Labor Flowsheet Datetime Report Generated by CPN: 08/07/2020 12:30 Datetime: 08/07/2020 07:46 VITAL SIGNS NBP Sys/Isabel/Mean (mmHg): 100 : 64 : 72 Pulse: 66 Datetime: 08/07/2020 04:05 SpO2 (%): 97 Datetime: 08/05/2020 18:37 Temperature Route: Oral Datetime: 08/05/2020 16:00 Temperature (C): 36.8 Datetime: 08/05/2020 15:09 Respirations: 19 Datetime: 08/05/2020 15:00 PAIN Pain Scale: 2 Pain Presence: Constant Pain Type: Dull Pain Location: Perineum Pain Assessment Comments: Ice pack on perineum Datetime: 08/05/2020 14:43 Stage of : Recovery Datetime: 08/05/2020 14:37 UTERINE ACTIVITY Monitor Mode: External Frequency (min): 2 Quality: Strong Duration (sec): 50-60 Pattern: Normal: <= 5 Contractions in 10 Minutes Resting Tone (Palpate): Relaxed Comments: Unable to establish baseline Datetime: 08/05/2020 14:30 Contraction Comments: Inverted contractions ASSESSMENT A Monitor Mode: Telemetry FHR Baseline Rate : 115 Variability: Moderate 6-25 bpm Accelerations: None Decelerations: Variable Category: Category II PATIENT CARE Oxygen Method: Room Air LaborFlag: Labor Datetime: 08/05/2020 14:23 STAGE 2 Pushing Position: Pushing with Contractions Pushing Progress: Descent with Pushing; Presenting Part Visible Datetime: 08/05/2020 14:20 VAGINAL EXAM Dilatation (cm): 10.0 Effacement (%): 100 Station: 2 Exam by: Keerthi Cottrell, CNM, MANAGER OF SALES Cervix, Consistency: Soft Cervix, Position: Midposition Datetime: 08/05/2020 14:00 Patient Position/Activity: Right Lateral Datetime: 08/05/2020 13:57 COMMUNICATION Communication: Provider at Bedside Communication Comments: Keerthi Cottrell, CNM, MANAGER OF SALES, at bedside Datetime: 08/05/2020 13:32 Monitor Interventions for FHR: Ultrasound Adjusted Datetime: 08/05/2020 13:19 Vaginal Exam Comments: Best check due to patient discomfort
== END 2020-08-07 10:30 | disposition home or self-care (01) | DRG 807 ==
LOC: WFO 12:11 → FBP 12:13 → WFO 12:37 → FBP 12:38
PROVIDERS: ADMIT Advanced Practice Midwife; ATTEND Advanced Practice Midwife
PROC: 10E0XZZ Delivery of Products of Conception, External Approach (ICD-10-PCS; principal; 2020-08-05)
PROC: 0HQ9XZZ Repair Perineum Skin, External Approach (ICD-10-PCS; 2020-08-05)
DX: O98.32 Other infections with a predominantly sexual mode of transmission complicating childbirth (principal); Z37.0 Single live birth; A60.00 Herpesviral infection of urogenital system, unspecified; O99.334 Smoking (tobacco) complicating childbirth; F17.200 Nicotine dependence, unspecified, uncomplicated; Z3A.37 37 weeks gestation of pregnancy
CPT/HCPCS: 36415; 84112; 85025; 86850; 86900; 86901; A9270; J7120

== ENCOUNTER 2020-11-04 13:31 | Outpatient (CLI) | payer OTHER ==
--- NOTE | 2020-11-05 16:06 | Ultrasound Report ---
LIMITED ULTRASOUND OF RIGHT BREAST: 11/04/2020 CLINICAL: Palpable right breast lump. Comparison is made to exams dated: 04/08/2020 ultrasound and 12/21/2019 ultrasound - [facility]. Color flow ultrasound of the right breast 3 o'clock region was performed. Frazier scale images of the r eal-time examination were reviewed. There is a 2.1 cm x 1.9 cm x 0.8 cm oval mass with a circumscribed margin in the right breast at 3 o' clock middle depth 3 cm from the nipple. This oval mass is hypoechoic with a well-defined boundary. This abnormality is not significantly changed. IMPRESSION: PROBABLY BENIGN The 2.1 cm x 1.9 cm x 0.8 cm oval mass in the right breast likely represents a fibroadenoma and is pr obably benign. A follow-up right ultrasound in 6 months is recommended to demonstrate stability. This exam was interpreted at Station ID: [id number]. Electronically Signed By: Eber magallanes:11/04/2020 14:07:22 Ultrasound BI-RADS: 3 Probably benign BI-RADS CATEGORY: (3) - 3 Ultrasound [id number] 6 month follow-up LATERALITY: (R)
== END 2020-11-04 13:32 | disposition home or self-care (01) ==
LOC: DI 13:31
PROVIDERS: ATTEND Nurse Practitioner Obstetrics & Gynecology
DX: N63.12 Unspecified lump in the right breast, upper inner quadrant (principal)

== ENCOUNTER 2021-05-28 13:52 | Outpatient (CLI) | payer BC ==
--- NOTE | 2021-05-29 11:36 | Ultrasound Report ---
LIMITED ULTRASOUND OF RIGHT BREAST AND AXILLA: 05/28/2021 CLINICAL: Patient returns for a 6 month follow up of the right breast. Comparison is made to exams dated: 11/04/2020 ultrasound, 04/08/2020 ultrasound, 12/21/2019 ultrasound, and 12/21/2019 ultrasound - [facility]. Color flow and real-time ultrasound of the right breast 3 o'clock, and axilla regions were performed. Frazier scale images of the real-time examination were reviewed. There is a stable 2 cm x 1.9 cm x 0.9 cm oval mass with a circumscribed margin in the right breast at 3 o'clock middle depth 3 cm from the nipple. This oval mass is hypoechoic with a well-defined bound cherise. No significant abnormalities were seen sonographically in the right axilla. IMPRESSION: PROBABLY BENIGN The stable 2 cm mass in the right breast likely represents a fibroadenoma and is probably benign. A follow-up ultrasound in 6 months is recommended to demonstrate long-term stability. Exam findings were conveyed to the patient. Patient is advised to monitor for significant change. Cli nical follow-up as needed. This exam was interpreted at Station ID: [id number]. Electronically Signed By: Norman Booker M.D. slc/:05/28/2021 15:40:58 Ultrasound BI-RADS: 3 Probably benign BI-RADS CATEGORY: (3) - 3 Ultrasound [id number] 6 month follow-up LATERALITY: (B)
== END 2021-05-28 13:53 | disposition home or self-care (01) ==
LOC: DI 13:52
PROVIDERS: ATTEND Nurse Practitioner Obstetrics & Gynecology
DX: N63.15 Unspecified lump in the right breast, overlapping quadrants (principal)

== ENCOUNTER 2021-12-09 08:51 | Outpatient (CLI) | payer MEDICAID ==
--- NOTE | 2021-12-10 12:50 | Ultrasound Report ---
LIMITED ULTRASOUND OF RIGHT BREAST: 12/09/2021 CLINICAL: Palpable right breast lump. Patient returns for a 6 month follow up of the right breast. Comparison is made to exams dated: 05/28/2021 ultrasound, 11/04/2020 ultrasound, 04/08/2020 ultrasound, a nd 12/21/2019 ultrasound - [facility]. Color flow ultrasound of the right breast 3 o'clock region was performed. Frazier scale images of the r eal-time examination were reviewed. There is a stable benign 1.8 cm x 2.3 cm x 0.7 cm oval mass with a circumscribed margin in the right breast at 3 o'clock anterior depth 3 cm from the nipple. This oval mass is hypoechoic with a well-de fined boundary. This lesion has not significantly changed when compared to multiple prior exams sunita ing back to 12/21/2019, and is therefore considered benign. IMPRESSION: BENIGN There is no sonographic evidence of malignancy. The stable 1.8 cm x 2.3 cm x 0.7 cm oval mass in the right breast likely represents a fibroadenoma an d is benign. Recommend annual screening mammograms beginning at age 40. This exam was interpreted at Station ID: [id number]. Electronically Signed By: Eber Hernandez M.D. ar/:12/09/2021 10:21:10 Ultrasound BI-RADS: 2 Benign BI-RADS CATEGORY: (2) - 2 RECOMMENDATION: (ANNUAL) - Recommend routine annual screening mammography. [id number] return to screening LATERALITY: (B)
== END 2021-12-09 08:52 | disposition home or self-care (01) ==
LOC: DI 08:51
PROVIDERS: ATTEND Nurse Practitioner
DX: N63.15 Unspecified lump in the right breast, overlapping quadrants (principal)

== ENCOUNTER 2022-04-02 16:42 | Outpatient (CLI) | payer MEDICAID ==
[2022-04-02 20:59] LABS: BASOPHILS # (AUTO) 0.1 10^3/uL (0.0-0.1); BASOPHILS % (AUTO) 0.7 %; EOSINOPHILS # (AUTO) 0.2 10^3/uL (0.0-0.7); EOSINOPHILS % (AUTO) 2.3 %; HCT - HEMATOCRIT 33.6 % (37.0-47.0); HGB - HEMOGLOBIN 11.1 g/dL (12.0-16.0); LYMPHOCYTES # (AUTO) 3.2 10^3/uL (1.5-3.5); LYMPHOCYTES % (AUTO) 33.8 %; MEAN CORPUSCULAR VOLUME 90.8 fL (81.0-99.0); MEAN PLATELET VOLUME 10.4 fL (7.9-10.8); MONOCYTES # (AUTO) 0.8 10^3/uL (0.0-1.0); MONOCYTES % (AUTO) 7.9 %; NEUTROPHILS # (AUTO) 5.2 10^3/uL (1.5-6.6); NEUTROPHILS % (AUTO) 55.2 %; PLT - PLATELET COUNT 266 10^3/uL (130-450); WHITE BLOOD COUNT 9.5 x10^3/uL (4.8-10.8)
[2022-04-04 06:09] LABS: RPR Non Reactive (Non Reactive)
[2022-04-04 07:10] LABS: HIV SCREEN 4TH GENERATION Non Reactive (Non Reactive)
[2022-04-04 08:10] LABS: HBsAG SCREEN Negative (Negative); HCV AB <0.1 s/co ratio (0.0-0.9); VARICELLA-ZOSTER AB IGG 699 index (Immune >165)
== END 2022-04-02 16:43 | disposition home or self-care (01) ==
LOC: LAB.N 16:42
PROVIDERS: ATTEND Nurse Practitioner Obstetrics & Gynecology
DX: Z36.89 Encounter for other specified antenatal screening (principal)
CPT/HCPCS: 36415; 85025; 86592; 86762; 86787; 86803; 86850; 86900; 86901; 87340; 87389

== ENCOUNTER 2022-05-25 14:27 | Outpatient (CLI) | payer MEDICAID ==
--- NOTE | 2022-05-26 09:31 | Ultrasound Report ---
PROCEDURE: OB Detailed Eval INDICATIONS: SUPERVISION OF TECHNIQUE: Real-time scanning was performed of the fetus, with image documentation and biometric measurements. Endovaginal scanning: Not performed COMPARISON: None. FINDINGS: General: A single living intrauterine gestation is present. Presentation: Cephalic Placenta: Placental position is posterior, without previa. Amniotic fluid index: 13.7 cm, normal for gestational age. heart rate: 153 beats per minute. Maternal cervical canal: 4.1 cm long; normal length is 2.5 cm or more. biometrics: Biparietal diameter: 4.9 cm Head circumference: 18.2 cm Abdominal circumference: 16.4 cm Femur length: 3.5 cm Estimated gestational age from initial scan: 21 weeks two days. Composite gestational age from present scan: 21 weeks zero days Estimated weight and percentile: 404 g, 38th percentile Anatomic survey: Neuro: Ventricles are normal at less than 10 mm. Cisterna magna is normal at 3-11 mm. Cerebellum i s normal in size and morphology. Nuchal skin fold: Normal at less than 6 mm between 14 and 20 weeks gestational age. Face: Nose and lips, facial profile are normal. Spine: No evidence for spina bifida. Heart: 4-chambered heart is present, with normal ventricular outflow tracts. Diaphragm: Diaphragm is intact. Stomach: Left-sided stomach is present. Kidneys: No hydronephrosis. Normal is less than 5 mm in 2nd trimester, less than 7 mm in 3rd trimester. Cord: 3 vessel cord has orthotopic insertion. Bladder: Normal in size. Extremities: All 4 extremities are visualized. IMPRESSION: Single living intrauterine gestation with normal anatomic survey. Reviewed by: Neto Box MD on 05/26/2022 9:30 AM PST Approved by: Neto Box MD on 05/26/2022 9:30 AM PST Station ID: [id number]
== END 2022-05-25 14:28 | disposition home or self-care (01) ==
LOC: DI 14:27
PROVIDERS: ATTEND Nurse Practitioner Obstetrics & Gynecology
DX: Z34.02 Encounter for supervision of normal first pregnancy, second trimester (principal); Z36.89 Encounter for other specified antenatal screening

== ENCOUNTER 2022-07-03 16:33 | Outpatient (CLI) | payer MEDICAID | END 2022-07-03 16:34 | disposition home or self-care (01) | LOC: LAB.N 16:33 | PROVIDERS: ATTEND Nurse Practitioner Obstetrics & Gynecology | DX: Z53.9 Procedure and treatment not carried out, unspecified reason (principal) ==

== ENCOUNTER 2022-07-15 15:46 | Outpatient (CLI) | payer MEDICAID ==
[2022-07-15 20:25] LABS: HCT - HEMATOCRIT 33.5 % (37.0-47.0); HGB - HEMOGLOBIN 11.2 g/dL (12.0-16.0); MEAN CORPUSCULAR HEMOGLOBIN 31.2 pg (27.0-31.0); MEAN CORPUSCULAR HGB CONC 33.4 g/dL (32.0-36.0); MEAN CORPUSCULAR VOLUME 93.3 fL (81.0-99.0); MEAN PLATELET VOLUME 11.2 fL (7.9-10.8); RED BLOOD COUNT 3.59 10^6/uL (4.20-5.40); RED CELL DISTRIBUTION WIDTH 13.1 % (12.0-15.0); WHITE BLOOD COUNT 11.5 x10^3/uL (4.8-10.8)
== END 2022-07-15 15:47 | disposition home or self-care (01) ==
LOC: LAB.N 15:46
PROVIDERS: ATTEND Nurse Practitioner Obstetrics & Gynecology
DX: Z36.9 Encounter for antenatal screening, unspecified (principal)
CPT/HCPCS: 36415; 82950; 85027

== ENCOUNTER 2022-09-21 08:46 | Inpatient (IN) | payer MEDICAID ==
[2022-09-21] MEDS ORDERED: OXYTOCIN 10 UNIT/ML VIAL ONE (09:14)
[2022-09-21] MEDS ORDERED: miSOPROStoL 200 MCG TABLET ONE (09:15)
[2022-09-21] MEDS ORDERED: METHYLERGONOVINE 0.2 MG/ML VIAL ONE (09:15)
[2022-09-21] MEDS ORDERED: HYDROCORTISONE 1% CREAM 28 GM TUBE PR PRN (09:27)
[2022-09-21] MEDS ORDERED: WITCH HAZEL/GLYCERIN 1 PAD TOP PRN (09:27)
--- NOTE | 2022-09-21 09:34 | DELIVERY NOTE ---
Delivery Note - Labor Labor: positive: Spontaneous - Delivery Method Delivery Method: positive: Spontaneous vaginal delivery - Presentation Presentation: positive: Vertex, PIYUSH - left occiput anterior - Nuchal Cord Nuchal Cord: positive: None - Amniotic Fluid Description Amniotic Fluid Description: positive: Light meconium - Episiotomy Type Episiotomy Type: positive: None - Laceration Laceration: positive: None - Delivery Outcome Delivery Outcome: positive: Livebirth - : positive: Placed in direct skin contact with mother, Stimulated, Warmed, [place] used sex: positive: Female - Cord Cord: positive: 3 vessels - Placenta Placenta: positive: Intact, Spontaneous - Estimated Blood Loss Estimated Blood Loss (in cc): 200 - Post Delivery Events Post Delivery Events: positive: No post delivery events - Delivery Comments (Free Text/Narrative) Delivery Comments (Free Text/Narrative): Labor: This 31yo @ 37.5wks gestation by LMP c/w 9.6wk U/S presented on 09/21/2022 in active labor. Cervix was 8/100/0 and vertex with intact membranes. FHR pattern demonstrated a Category I pattern throughout labor. Precipitous labor course. SROM occurred at 0907 and was noted to be a small amount of light meconium stained amniotic fluid. Pt progressed to c/c/+2 @ 0907. : Normal SVB of viable female infant on 09/21/2022 @ 1915. No nuchal cord. The was placed on maternal abdomen, stimulated, dried, and placed skin to skin. Apgars were 9/10 at 1 and 5 minutes respectively. The umbilical cord was allowed to stop pulsating at which time it was doubly clamped by CNM and cut by FOB. Cord blood was obtained. 3VC. Fundal massage and gentle cord traction applied for active management of the third stage. Placenta delivered sponta neously and intact at 0920. EBL 200mL. Fourth stage: Uterine fundus firm and there is no excessive bleeding. The perineum, vagina, and cervix were inspected and found to be intact. initiated. Family bonding well. Both mother and baby were left in stable condition.
--- NOTE | 2022-09-21 09:38 | HISTORY & PHYSICAL EXAMINATION ---
Admit History - Visit Reason Visit Reason: Contractions - : 2 Parity: 1 Premature: 0 Ectopic: 0 : 0 Care: positive: [facility] Risk/History: positive: None Complications This : positive: None Smoking Status: Current every day smoker - Mother's Labs Mother's Blood Type: positive: A Mother's RH: positive: Positive GBS: positive: Group B Step Negative Rubella Status: positive: Immune Meds/Allgy - Home Medications Home Medications: Ambulatory Orders Medication Instructions Recorded Confirmed Penicillin Vk 500 mg PO TID 10 Days tablet 02/02/13 - Allergies Allergies/Adverse Reactions: Allergies Allergy/AdvReac Type Severity Reaction Status Date / Time lucas Allergy Severe Unknown Verified 08/05/20 16:44 shellfish derived Allergy Mild Unknown Verified 08/05/20 16:44 Review of Systems - Constitutional Constitutional: denies: Fatigue, Fever, Chills, Malaise - Eyes Eyes: denies: Blurred vision, Spots in vision, Dipolpia - Cardiovascular Cariovascular: denies: Irregular heart rate, Palpitations, Chest pain, Edema - Respiratory Respiratory: denies: Cough, Wheezing, SOB at rest - Gastrointestinal Gastrointestinal: denies: Constipation, Diarrhea, Nausea, Vomiting - Genitourinary Genitourinary: denies: Dysuria - Integumentary Integumentary: denies: Rash, Pruritis - Neurological Neurological: denies: Headache - Psychiatric Psychiatric: reports: Depression, Anxiety - Hematologic/Lymphatic Hematologic/Lymphatic: denies: Anemia Physical - Abdominal Exam Contraction Frequency (min/apart): 2-3 Contraction Intensity: positive: Strong Uterine Resting Tone: positive: Soft - Monitoring Heart Rate Baseline: 130 Strip Review: positive: Category I - Presentation Presentation: positive: Vertex - Vaginal Exam Membranes: positive: Membranes intact Dilation (in cm): 8 Effacement (%): 100 Station: positive: 0 Cervical Position: positive: Anterior - Speculum Exam Speculum Exam Performed: positive: No Plan for Labor - Plan For Labor I expect patient to be DC'd or transferred within 96 hours.: Yes Plan for Labor: HPI: Phoebe is a 31yo @ 37.5wks gestation by LMP c/w first trimester ultrasound who presented to [facility] with c/o contractions. She was found to contract every 2-3 minutes with soft resting tone. SVE 8/100/0 and vertex with intact membranes. She reported onset of contractions this morning at 0630 that woke her up. She has had vaginal spotting for the past 48 hours but nothing that felt concerning to her. She denies leakage of fluid and reports +FM. She has been a patient of [facility] for the duration of her which has remained uncomplicated with the exception of her current every day tobacco smoking. She has cut down significantly from the onset of and is currently smoking 7-10 cigarettes per day. 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 She has been taking daily suppressive therapy since 36 weeks gestation per protocol. She has received adequate and consistent care for the duration of her . She is supported by her partner Rudolph. 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 SAB x 0. Last pap unsure, No hx of abnormals. Medical Hx: anxiety/depression; HSV-2 (no hx outbreaks) Surgical Hx: appendectomy age 11. Family Hx: diabetes - maternal family hx Meds: PNV, nicotine lozenges, trimacinolone PRN, acyclovir tid Allergies: None known drug allergies; Shellfish-N/V Social: Single. lives with partner. Works as a stay at home. No tobacco, ETOH or recreational drug use. Caffeine intake is minimal. course: A positive, antibody negative Rubella immune Initial U/S @ 9.6wks c/w LMP dating Genetic screening - declined FAS WNL. Posterior placenta, no previa. Size c/w dating. 3VC. ERNESTINE WNL Glucola 80 Influenza - declined Tdap received 3rd trimester COVID vaccine x 2 (last received 12/2020) GBS negative Physical Exam: Normocephalic, atraumatic Heart RRR w/o M/G/R Lungs CTAB Abdomen gravid, soft, nontender EFW 3200g FHR Baseline 130s, moderate variability Contractions palpate strong every 2-3 minutes with soft resting tone SVE 8/100/0 and vertex with intact membranes Breathing through contractions and tolerating them well. Mood is good. Assessment: 31yo @ 37.5wks gestation by LMP c/w 9.6wk U/S Active labor GBS negative HSV-2 positive FHR Category I Plan: Admit to [facility] for expectant management. Continuous monitoring. Anticipate .
[2022-09-21 09:45] LABS: BASOPHILS # (AUTO) 0.1 10^3/uL (0.0-0.1); BASOPHILS % (AUTO) 0.4 %; EOSINOPHILS # (AUTO) 0.1 10^3/uL (0.0-0.7); EOSINOPHILS % (AUTO) 0.8 %; HCT - HEMATOCRIT 35.8 % (37.0-47.0); HGB - HEMOGLOBIN 12.1 g/dL (12.0-16.0); LYMPHOCYTES # (AUTO) 2.3 10^3/uL (1.5-3.5); LYMPHOCYTES % (AUTO) 15.7 %; MEAN CORPUSCULAR HEMOGLOBIN 30.1 pg (27.0-31.0); MEAN CORPUSCULAR HGB CONC 33.8 g/dL (32.0-36.0); MEAN CORPUSCULAR VOLUME 89.1 fL (81.0-99.0); MEAN PLATELET VOLUME 10.8 fL (7.9-10.8); MONOCYTES # (AUTO) 0.7 10^3/uL (0.0-1.0); MONOCYTES % (AUTO) 4.9 %; NEUTROPHILS # (AUTO) 11.6 10^3/uL (1.5-6.6); NEUTROPHILS % (AUTO) 77.6 %; PLT - PLATELET COUNT 235 10^3/uL (130-450); RED BLOOD COUNT 4.02 10^6/uL (4.20-5.40); RED CELL DISTRIBUTION WIDTH 13.6 % (12.0-15.0)
[2022-09-21] MEDS ORDERED: ACETAMINOPHEN 500 MG TABLET PO SCH (10:00)
[2022-09-21] MEDS ORDERED: LACTATED RINGERS 1,000 ML IV SCH (10:00)
[2022-09-21] MEDS ORDERED: IBUPROFEN 800 MG TABLET PO SCH (10:00)
[2022-09-21] MEDS ORDERED: CARBOPROST TROMETHAMINE 250 MCG/ML AMP IM ONE (14:15)
[2022-09-21] MEDS ORDERED: DOCUSATE SODIUM 100 MG CAPSULE PO SCH (21:00)
[2022-09-22 10:06] VITALS: BP 107/69
--- NOTE | 2022-09-22 12:13 | Discharge Plan ---
Discharge Plan Problem Reviewed?: Yes Disposition: Home, Self Care Condition: Good Diet: Regular Activity Restrictions: No Restrictions Shower Restrictions: No Driving Restrictions: No Weight Bearing: Full Weight Instruction Topics: Quit Smoking Get Support, Vaginal After No Smoking: If you smoke, Please STOP! Call for help. Follow-up with: Susu Howell CNM, ARNP [Provider Admit Priv/Credential] - 1 Week (1 week telehealth visit with Susu Howell CNM/AVA on WednesdayOctober 02 at 11:30am.)
--- NOTE | 2022-09-22 12:17 | DISCHARGE SUMMARY ---
Discharge Summary Condition at Discharge: Good Discharge Disposition: 01 Home, Self Care - HOSPITAL COURSE Hospital Course: Date of Admission: 09/21/2022 Date of Discharge: 09/22/2022 Diagnosis on Admission: 1. 31yo @ 37.5wks gestation 2. Active labor 3. GBS negative 4. HSV-2 positive 5. FHR Category I Diagnosis on Discharge: 1. 31yo PPD#1 s/p TSVB viable female 2. Perineum intact 3. 4. Normal recovery Brief History: [facility] who presented to [facility] on 09/21/2022 in active labor with onset of contractions at 0630am. Cervix was 8/100/0 and vertex with intact membranes. SROM occurring at 0907 noted to be light meconium stained amniotic fluid. She progressed precipitously to spontaneously deliver a viable female on 09/21/2022 at 1915 over intact perineum. Apgars were 9/10 at 1 and 5 minutes respectively. EBL 200mL. She has been doing well in her course. She is ambulating and t olerating a regular diet. She is urinating without difficulty and her lochia is normal. Her pain is well controlled with oral medications. She is bonding well with her baby and she is without difficulty. She will be discharged home today on day #1 with instructions to continue taking her vitamin while and to continue taking ibuprofen and tylenol over the counter as needed for pain management. She is a current every day smoker and was counseled to quit smoking several times throughout her as well as and smoking cessation medications offerred and pt declined. She has been given precautions to call if she has any worsening fev ers, chills, abdominal pain, increased vaginal bleeding or foul smelling vaginal lochia. Physical Exam: Normocephalic, atraumatic. Heart RRR w/o M/G/R, lungs CTAB, abdomen soft and nontender with fundus firm at U-1, perineum intact, light lochia rubra, bilateral LE's no edema, mood is good. - ALLERGIES Allergies/Adverse Reactions: Allergies Allergy/AdvReac Type Severity Reaction Status Date / Time lucas Allergy Severe Unknown Verified 08/05/20 16:44 shellfish derived Allergy Mild Unknown Verified 08/05/20 16:44 - MEDICATIONS Home Medications: Ambulatory Orders Medication Instructions Recorded Confirmed Penicillin Vk 500 mg PO TID 10 Days tablet 02/02/13 - LABS Result Diagrams: 09/21/22 09:35
--- NOTE | 2022-09-22 14:17 | Labor Flowsheet ---
Labor Flowsheet Datetime Report Generated by CPN: 09/22/2022 14:17 Datetime: 09/22/2022 09:37 VITAL SIGNS NBP Sys/Isabel/Mean (mmHg): 107 : 72 : 80 Pulse: 72 Datetime: 09/21/2022 12:36 VAGINAL EXAM Membranes Ruptured Date/Time: 09/21/2022 09:08 Membranes Rupture Method: Spontaneous Amniotic Fluid Color: Light Meconium Amniotic Fluid Amount: Small Amniotic Fluid Odor: Normal Datetime: 09/21/2022 09:30 Stage of : Recovery
== END 2022-09-22 14:10 | disposition home or self-care (01) | DRG 807 ==
LOC: WFO 08:46 → FBP 08:48 → WFO 08:58 → FBP 08:59
PROVIDERS: ADMIT Nurse Practitioner Obstetrics & Gynecology; ATTEND Nurse Practitioner Obstetrics & Gynecology
PROC: 10E0XZZ Delivery of Products of Conception, External Approach (ICD-10-PCS; principal; 2022-09-21)
DX: O98.32 Other infections with a predominantly sexual mode of transmission complicating childbirth (principal); Z37.0 Single live birth; A60.00 Herpesviral infection of urogenital system, unspecified; O77.0 Labor and delivery complicated by meconium in amniotic fluid; O99.334 Smoking (tobacco) complicating childbirth; F17.210 Nicotine dependence, cigarettes, uncomplicated; Z3A.37 37 weeks gestation of pregnancy; Z79.899 Other long term (current) drug therapy
CPT/HCPCS: 36415; 85025